=== PATIENT | male | born 1975 | race American Indian/Alaskan Native ===

== ENCOUNTER 2021-12-01 04:18 | Emergency (ER) | payer BC ==
[2021-12-01] MEDS ORDERED: ASPIRIN 325 MG TAB PO ONE (05:50)
[2021-12-01 06:15] LABS: Basophils % (Auto) 0.3 % (0.0-1.8); Eosinophils % (Auto) 0.2 % (0.0-4.3); Hematocrit 39.9 % (35.5-45.6); Hemoglobin 12.8 gm/dl (11.8-15.2); Lymphocytes # (Auto) 2.1 K/mm3 (1.2-5.4); Mean Corpuscular HGB Conc 32 % (32-34); Mean Corpuscular Volume 93 fl (84-94); Monocytes % (Auto) 8.6 % (0.0-7.3); Platelet Count 449 K/mm3 (140-440); Red Blood Count 4.27 M/mm3 (3.65-5.03); Red Cell Distribution Width 12.8 % (13.2-15.2)
[2021-12-01 06:29] LABS: Alanine Aminotransferase 23 units/L (7-56); Albumin 4.7 g/dL (3.9-5); BUN/Creatinine Ratio 10; Blood Urea Nitrogen 11 mg/dL (9-20); Calcium 9.9 mg/dL (8.4-10.2); Hemolysis Index 9
--- NOTE | 2021-12-01 06:46 | XRay Report ---
CHEST 2 VIEWS INDICATION / CLINICAL INFORMATION: chest pain. COMPARISON: None available. FINDINGS: SUPPORT DEVICES: None. HEART / MEDIASTINUM: Heart size and mediastinal contour appear within normal limits. LUNGS / PLEURA: No significant pulmonary or pleural abnormality. No pneumothorax. BONES: No significant osseous abnormality. ADDITIONAL FINDINGS: No significant additional findings. IMPRESSION: 1. No active cardiopulmonary disease. Signer Name: Naif Guerrero II, MD Signed: 12/01/2021 6:41 AM Workstation Name: [id number]
[2021-12-02 07:47] VITALS: BP 160/105
--- NOTE | 2021-12-02 07:49 | Emergency Department Report ---
<TONO SELF A - Last Filed: 12/02/21 07:47> ED Chest Pain HPI - General Chief Complaint: Chest Pain Stated Complaint: CHEST PAIN Time Seen by Provider: 12/02/21 07:45 Source: patient Mode of arrival: Ambulatory Limitations: No Limitations - History of Present Illness Severity scale (0 -10): 9 - Related Data Previous Rx's Medication Instructions Recorded Last Taken Type Ibuprofen [Motrin 600 MG tab] 600 mg PO Q8H PRN #30 tablet 05/26/14 Unknown Rx traMADoL [Ultram 50 MG tab] 50 mg PO Q6HR PRN #20 tablet 05/26/14 Unknown Rx HYDROcodone/APAP 7.5-325 [[place] 1 each PO Q6HR PRN #8 tablet 02/16/15 Unknown Rx 7.5-325 mg TAB] Ondansetron [Zofran Odt] 4 mg SL Q6H PRN #8 tab.rapdis 02/16/15 Unknown Rx Aspirin EC [Ecotrin] 325 mg PO QDAY #30 tablet. 11/28/15 Unknown Rx Simvastatin (Nf) [Zocor TAB] 20 mg PO QHS #30 tablet 11/28/15 Unknown Rx amLODIPine 10 mg PO QDAY #30 tablet 11/28/15 Unknown Rx Sulfamethoxazole/Trimethoprim 1 each PO BID #14 tablet 05/29/16 Unknown Rx [Bactrim DS TAB] Allergies Allergy/AdvReac Type Severity Reaction Status Date / Time No Known Allergies Allergy Verified 11/12/15 20:40 ED Review of Systems Comment: All other systems reviewed and negative ED Past Medical Hx - Past Medical History Previous Medical History?: Yes Hx Hypertension: Yes Hx Heart Attack/AMI: Yes ([id number]) Hx Congestive Heart Failure: No Hx Diabetes: No Hx Asthma: Yes (childhood asthma resolved) Hx COPD: No Additional medical history: Sleep Apnea - Surgical History Past Surgical History?: Yes Hx Coronary Stent: Yes - Social History Smoking Status: Current Every Day Smoker Substance Use Type: Alcohol - Medications Home Medications: Home Medications Medication Instructions Recorded Confirmed Last Taken Type Ibuprofen [Motrin 600 MG tab] 600 mg PO Q8H PRN #30 tablet 05/26/14 Unknown Rx traMADoL [Ultram 50 MG tab] 50 mg PO Q6HR PRN #20 tablet 05/26/14 Unknown Rx HYDROcodone/APAP 7.5-325 [[place] 1 each PO Q6HR PRN #8 tablet 02/16/15 Unknown Rx 7.5-325 mg TAB] Ondansetron [Zofran Odt] 4 mg SL Q6H PRN #8 tab.rapdis 02/16/15 Unknown Rx Aspirin EC [Ecotrin] 325 mg PO QDAY #30 tablet. 11/28/15 Unknown Rx Simvastatin (Nf) [Zocor TAB] 20 mg PO QHS #30 tablet 11/28/15 Unknown Rx amLODIPine 10 mg PO QDAY #30 tablet 11/28/15 Unknown Rx Sulfamethoxazole/Trimethoprim 1 each PO BID #14 tablet 05/29/16 Unknown Rx [Bactrim DS TAB] ED Physical Exam - General Limitations: No Limitations ED Course - Reevaluation(s) Reevaluation #1: 12/02/21 07:48 NORVASC LISINOPRIL ED Medical Decision Making - Lab Data Result diagrams: 12/01/21 05:57 12/01/21 05:57 ED Disposition Clinical Impression: Hypertensive urgency Chest pain Qualifiers: Chest pain type: unspecified Qualified Code(s): R07.9 - Chest pain, unspecified Disposition: 01 HOME / SELF CARE / HOMELESS Condition: Stable Instructions: Nonspecific Chest Pain, Adult, [id number], Hypertension, Adult, [id number], Managing Your Hypertension Additional Instructions: Cut down your sodium in your food to help your blood pressure Increase your daily fluid to help your hydration Call and schedule follow-up with your primary doctor in the next 3 to 5 days for progress It is very important that you consistent with your antihypertensive medication as prescribed by your primary doctor Please do not hesitate to call or return to emergency if your symptoms Referrals: PRIMARY CARE, [Primary Care Provider] - 3-5 Days <KISHOR LAWS - Last Filed: 12/03/21 04:49> ED Chest Pain HPI - History of Present Illness Initial Comments: 46-year-old male with a history of hypertension who now presents with chest pressure associated with elevated blood pressure with a systolic of about 200. Patient reported that he has been in the ER for the last 24 hours and does not get a chance to come into the main ER. Patient denies any shortness of breath or palpitation. No fever or chills reported. No other modifying or associated factors reported. Heart Score - HEART Score History: Slightly suspicious EKG: Normal Age: < 45 Risk factors: 1-2 risk factors Troponin: < normal limit HEART Score: 1 - EKG Read Time Time EKG Completed: 03:44 EKG Read Time: 03:50 - Critical Actions Critical Actions: 0-3 pts:0.9-1.7%risk of adverse cardiac event.Candidate for discharge ED Review of Systems ROS: Stated complaint: CHEST PAIN Other details as noted in HPI Comment: All other systems reviewed and negative Cardiovascular: chest pain ED Physical Exam - General General appearance: alert, in no apparent distress - Head Head exam: Present: normal inspection - Eye Eye exam: Present: normal appearance Pupils: Present: normal accommodation - ENT ENT exam: Present: normal exam, normal orophraynx, mucous membranes moist - Neck Neck exam: Present: normal inspection, full ROM. Absent: tenderness - Respiratory Respiratory exam: Present: normal lung sounds bilaterally. Absent: respiratory distress, accessory muscle use - Cardiovascular Cardiovascular Exam: Present: regular rate, normal rhythm, normal heart sounds - GI/Abdominal GI/Abdominal exam: Present: soft, normal bowel sounds. Absent: distended, tenderness - Extremities Exam Extremities exam: Present: normal inspection, normal capillary refill. Absent: pedal edema - Back Exam Back exam: Absent: tenderness - Neurological Exam Neurological exam: Present: alert, oriented X3 - Psychiatric Psychiatric exam: Present: normal affect, normal mood - Skin Skin exam: Present: warm, normal color ED Course Vital Signs 12/01/21 12/01/21 12/02/21 04:19 23:28 07:46 Temperature 97.7 F 98.7 F Pulse Rate 101 H 91 H 62 Respiratory 18 18 14 Rate Blood Pressure 166/100 Blood Pressure 190/103 160/105 [Right] O2 Sat by Pulse 96 96 97 Oximetry SHE score - She Score Age > 65: (0) No Aspirin use within the Past 7 Days: (0) No 3 or more CAD Risk Factors: (0) No 2 or more Angina events in past 24 hrs: (0) No Known CAD with more than 50% Stenosis: (0) No Elevated Cardiac Markers: (0) No ST Deviation Greater than 0.5mm: (0) No SHE Score: 0 ED Medical Decision Making - Lab Data Result diagrams: 12/01/21 05:57 12/01/21 05:57 - EKG Data -: EKG Interpreted by Me EKG shows normal: sinus rhythm - EKG Data 12/03/21 04:46 Noted normal sinus rhythm at a rate of 82 bpm, with left atrial enlargement and this abnormal ECG. - Medical Decision Making Here with chest pain/pressure--differential could be but not limited to myocardial infarction, pulmonary embolism, costochondritis, anxiety, gastritis, GERD, pancreatitis, and or pyelonephritis--in order to rule out the above-- so will go ahead and order routine cardiopulmonary work-up that include troponin, EKG, chest x-ray, BNP, CKMB, and CBC, CMP and urinalysis for any correctable infectious process or electrolyte abnormality as a cause. This patient chest pain is likely caused as a result of the pressure from his hypertension urgency--however because of his age we will go ahead and follow-up the above labs to rule out any cardiac or pulmonary involvement. Noted with improved blood pressure with systolic around 160 mmHg--and noted with unremarkable labs including 3 serial troponins-- Critical care attestation.: If time is entered above; I have spent that time in minutes in the direct care of this critically ill patient, excluding procedure time. ED Disposition Is pt being admited?: No Does the pt Need Aspirin: No Time of Disposition: 04:49
--- NOTE | 2021-12-02 08:24 | Electrocardiograph Report ---
[facility] Test Date: 2021-12-01 Test Time: 05:11:31 Pat Name: RUDDY PLAZA Department: Room: Gender: M Hospitality Services Manager: TARIQ : 1975 Requested By: ED DOC Order Number: [id number] Reading MD: Gabe Monroe Measurements Intervals [place] Rate: 100 P: 53 [place]: 146 QRS: -66 QRSD: 91 T: 131 QT: 334 QTc: 431 Interpretive Statements Sinus tachycardia Left anterior fascicular block Consider left ventricular hypertrophy Nonspecific T abnormalities, lateral leads No previous ECG available for comparison Electronically Signed On 12-02-2021 8:24:19 EDT by Gabe Monroe
--- NOTE | 2021-12-02 08:42 | Electrocardiograph Report ---
[facility] Test Date: 2021-12-02 Test Time: 07:55:27 Pat Name: RUDDY PLAZA Department: Room: Gender: M Cdl Bulk Driver: ARIK : 1975 Requested By: TONO SELF Order Number: [id number] Reading MD: Gabe Monroe Measurements Intervals [place] Rate: 74 P: 72 TN: 162 QRS: -64 QRSD: 87 T: -73 QT: 362 QTc: 398 Interpretive Statements Sinus rhythm Ventricular premature complex Left anterior fascicular block Nonspecific T abnormalities, diffuse leads Compared to ECG 12/01/2021 05:11:31 Ventricular premature complex(es) now present Sinus tachycardia no longer present T-wave abnormality still present Electronically Signed On 12-02-2021 8:42:16 EDT by Gabe Monroe
--- NOTE | 2021-12-04 09:50 | Electrocardiograph Report ---
[facility] Test Date: 2021-12-03 Test Time: 03:44:45 Pat Name: RUDDY PLAZA Department: Room: Gender: M Heavy Equipment Operator Apprentice: TARIQ : 1975 Requested By: KISHOR LAWS Order Number: [id number] Reading MD: Gabe Monroe Measurements Intervals [place] Rate: 82 P: 69 [place]: 146 QRS: -59 QRSD: 87 T: 61 QT: 342 QTc: 399 Interpretive Statements Sinus rhythm Probable left atrial enlargement Left anterior fascicular block nonspecific st-t Compared to ECG 12/02/2021 07:55:27 Ventricular premature complex(es) no longer present T-wave abnormality no longer present Electronically Signed On 12-04-2021 9:50:37 EDT by Gabe Monroe
== END 2021-12-03 05:40 | disposition home or self-care (01) ==
LOC: ED 04:18
DX: R07.9 Chest pain, unspecified (principal); I16.0 Hypertensive urgency; I10 Essential (primary) hypertension; I21.9 Acute myocardial infarction, unspecified; J45.909 Unspecified asthma, uncomplicated; Z90.49 Acquired absence of other specified parts of digestive tract; Z79.899 Other long term (current) drug therapy; F17.200 Nicotine dependence, unspecified, uncomplicated
CPT/HCPCS: 36415; 71046; 80053; 84484; 85025; 93005; 99284